=== PATIENT | female | born 1995 | race Caucasian/White ===

== ENCOUNTER 2016-06-01 17:54 | Emergency (ER) | payer OTHER ==
[~2016-06-01] VITALS: Ht 165.1 cm; Wt 76.2 kg
[2016-06-01 20:37] LABS: BILIRUBIN,URINE NEGATIVE (NEG); GLUCOSE,URINE NEGATIVE (NEG); NITRITE,URINE NEGATIVE (NEG); PROTEIN,URINE NEGATIVE (NEG-TRACE); UROBILINOGEN,URINE 0.2 mg/dL (0.2 mg/dL)
[2016-06-01 20:44] LABS: BACTERIA,URINE FEW /HPF (0-FEW); RBC,URINE 0 /HPF (0-2); SQUAMOUS EPITHELIAL CELL,UR MOD /LPF
[2016-06-01 20:46] LABS: NEG OBC UR NEG; POS OBC UR POS
--- NOTE | 2016-06-01 21:58 | PHYS DOC ---
Past Medical History Past Medical History: Anxiety, Depression, GERD, IBS Past Surgical History: Tonsillectomy Alcohol Use: Occasionally Drug Use: None Adult General Chief Complaint Chief Complaint: FLANK PAIN HPI HPI Patient is a 21 year old female brought to the ED by a family member with the complaint of right flank pain today. The patient is concerned that the pain is in her "kidney area". She denies UTI symptoms at this time. Denies fever or chills. Denies nausea or vomiting. She had pain like this a couple of weeks ago and was seen at [facility] emergency department where she was diagnosed with a UTI and given a prescription for antibiotics. She was given Bactrim and had an allergic reaction and then her primary care doctor switched her to a different antibiotic and she did finish it. Patient denies , she has been on the diaper shot for about 5 years. She hasn't had a period for 5 years. She has not had chronic problems with UTIs. Denies fever or chills. She did say that she has had a workup of her gallbladder before, sounds like a gallbladder ultrasound and even a PIPIDA scan , states that the tests were normal. I ask her if it was this type of pain that caused them to do that workup in the past and she said no, it was a "bulge" in the area of her gallbladder. Patient has no chronic medical problems. Her insurance recently changed so her previous primary care physician can't see her anymore. Review of Systems Review of Systems Constitutional: Denies fever or chills [] Eyes: Denies change in visual acuity, redness, or eye pain [] HENT: Denies nasal congestion or sore throat [] Respiratory: Denies cough or shortness of breath [] Cardiovascular: Denies chest pain GI: As in history of present illness : Denies dysuria or hematuria [] Musculoskeletal: Denies back pain or joint pain [] Integument: Denies rash or skin lesions [] Neurologic: Denies headache, focal weakness or sensory changes [] Allergies Allergies Allergies Coded Allergies Type Severity Reaction Last Updated Verified sulfamethoxazole Adverse Reaction Unknown Nausea and Vomiting 06/01/16 Yes trimethoprim Adverse Reaction Unknown Nausea and Vomiting 06/01/16 Yes Physical Exam Physical Exam Constitutional: Well developed, well nourished, no acute distress, non-toxic appearance. Alert, mentating normally, moving about on the cart without difficulty. HENT: Normocephalic, atraumatic, bilateral external ears normal, nose normal. [ ] Eyes: conjunctiva normal, no discharge. [] Neck: Normal range of motion, no stridor. [] Cardiovascular:Heart rate regular rhythm, no murmur [] Lungs & Thorax: Bilateral breath sounds clear to auscultation [] Abdomen: Bowel sounds normal, soft, no tenderness, no masses, no pulsatile masses. Abdomen exam entirely benign. Skin: Warm, dry, no erythema, no rash. [] Back: No tenderness, no CVA tenderness. The area of the patient's pain is in the mid axillary line just below the lower rib cage, it is not the flank or the right upper quadrant. Extremities: No tenderness, no cyanosis, no clubbing, ROM intact, no edema. [] Neurologic: Alert and oriented X 3, normal motor function, normal sensory function, no focal deficits noted. [] Current Patient Data Vital Signs Vital Signs Date Time Temp Pulse Resp B/P Pulse Ox O2 Delivery O2 Flow Rate FiO2 06/01/16 22:05 83 124/67 99 Room Air 06/01/16 19:05 98.3 16 98.3 Lab Values Laboratory Tests Test 06/01/16 18:00 Urine Collection Type Unknown Urine Color Yellow Urine Clarity Clear Urine pH 6.0 Urine Specific [place] <=1.005 Urine Protein Negativemg/dL (NEG-TRACE) Urine Glucose (UA) Negativemg/dL (NEG) Urine Ketones (Stick) Negativemg/dL (NEG) Urine Blood Negative (NEG) Urine Nitrite Negative (NEG) Urine Bilirubin Negative (NEG) Urine Urobilinogen Dipstick 0.2mg/dL (0.2 mg/dL) Urine Leukocyte Esterase Small (NEG) Urine RBC 0/HPF (0-2) Urine WBC 5-10/HPF (0-4) Urine Squamous Epithelial Cells Mod/LPF Urine Bacteria Few/HPF (0-FEW) Urine Test Negative (NEG) EKG EKG [] Radiology/Procedures Radiology/Procedures [] Course & Med Decision Making Course & Med Decision Making Pertinent Labs and Imaging studies reviewed. (See chart for details) 21-year-old female presents with right sided pain that is not specifically flank pain or right upper quadrant pain. She has had her gallbladder fully evaluated in the past and says those tests were normal. It's unclear what might be the cause of her pain but her abdominal exam is benign. I did check a urinalysis because she reports a recent UTI, that urinalysis was negative. I reassured the patient that at this time there is no evidence in the ED of any serious cause of her pain and ask her to follow up with a primary care doctor if her pain persists for further evaluation if necessary. [] Dragon Disclaimer Dragon Disclaimer This electronic medical record was generated, in whole or in part, using a voice recognition dictation system. Departure Departure Impression: Primary Impression: Flank pain Disposition: HOME, SELF-CARE Condition: STABLE Referrals: NO PCP (PCP) Additional Instructions: As we discussed, today you do not have a urinary tract infection. It's not clear what is causing your pain but we are not finding any serious cause. I recommend that you try ibuprofen, 2-3 [id number] every 6 hours as needed for pain, and follow-up with your doctor for possible further testing. GEORGE IBARRA MD Jun 01, 2016 21:57
[2016-06-01 22:05] VITALS: BP 124/67
== END 2016-06-01 22:14 | disposition home or self-care (01) ==
LOC: ER 17:54
DX: R10.11 Right upper quadrant pain (principal); K21.9 Gastro-esophageal reflux disease without esophagitis; K58.9 Irritable bowel syndrome, unspecified
CPT/HCPCS: 81001; 81025; 87086; 99284

== ENCOUNTER 2017-01-05 19:18 | Emergency (ER) | payer OTHER ==
[~2017-01-05] VITALS: Ht 165.1 cm; Wt 81.6 kg
[2017-01-05 20:47] LABS: BILIRUBIN,URINE NEGATIVE (NEG); GLUCOSE,URINE NEGATIVE (NEG); NITRITE,URINE POSITIVE (NEG); PROTEIN,URINE NEGATIVE (NEG-TRACE); UROBILINOGEN,URINE 0.2 mg/dL (0.2 mg/dL)
[2017-01-05 20:53] LABS: BACTERIA,URINE FEW /HPF (0-FEW); RBC,URINE 0 /HPF (0-2); WBC,URINE >40 /HPF (0-4)
[2017-01-05 20:54] LABS: SQUAMOUS EPITHELIAL CELL,UR FEW /LPF
[2017-01-05] MEDS ORDERED: MORPHINE SULFATE 2 MG/ML DISP.SYRIN. IV ONE (21:00)
[2017-01-05] MEDS ORDERED: ONDANSETRON PF 4 MG/2 ML VIAL. IV ONE (21:00)
[2017-01-05 21:10] LABS: HEMATOCRIT 44.3 % (36.0-47.0); HEMOGLOBIN 14.9 g/dL (12.0-15.5); RED BLOOD COUNT 5.1 x10^6/uL (3.50-5.40); RED CELL DISTRIBUTION WIDTH 13.8 % (11.5-14.5); WHITE BLOOD COUNT 8.4 x10^3/uL (4.0-11.0)
[2017-01-05 21:19] LABS: CALCIUM 9.3 mg/dL (8.5-10.1); CREATININE 0.7 mg/dL (0.6-1.0); GFR 103.7; POTASSIUM 3.8 mmol/L (3.5-5.1)
[2017-01-05 21:25] LABS: ALBUMIN 3.9 g/dL (3.4-5.0); ALBUMIN/GLOBULIN RATIO 1.1 (1.0-1.7); TOTAL BILIRUBIN 0.2 mg/dL (0.2-1.0); TOTAL PROTEIN 7.6 g/dL (6.4-8.2)
--- NOTE | 2017-01-05 21:59 | PHYS DOC ---
Past Medical History Past Medical History: Anxiety, Depression, GERD, IBS Past Surgical History: Tonsillectomy Alcohol Use: Occasionally Drug Use: None Adult General Chief Complaint Chief Complaint: PAIN ON URINATION HPI HPI Patient is a 22 year old female with a history of recurrent UTI presents the ED complaining of dysuria 2 days. Patient states she is taking Cipro outpatient with no improvement. Describes the pain as sharp. Rates the pain as 6 out of 10. Associated symptoms urinary frequency. Denies nausea/vomiting, fever, back pain, chest pain, shortness of breath, STD exposure, vaginal discharge or vaginal bleeding. Review of Systems Review of Systems Constitutional: Denies fever or chills [] Eyes: Denies change in visual acuity, redness, or eye pain [] HENT: Denies nasal congestion or sore throat [] Respiratory: Denies cough or shortness of breath [] Cardiovascular: No additional information not addressed in HPI [] GI: Denies abdominal pain, nausea, vomiting, bloody stools or diarrhea [] : Complains of dysuria. Denies hematuria [] Musculoskeletal: Denies back pain or joint pain [] Integument: Denies rash or skin lesions [] Neurologic: Denies headache, focal weakness or sensory changes [] Endocrine: Denies polyuria or polydipsia [] Current Medications Current Medications Current Medications Medications (Trade) Dose Ordered Sig/Lottie Start Time Stop Time Status Last Admin Dose Admin Ceftriaxone Sodium 50 ml @ 100 mls/hr 1X ONCE 01/05/17 22:00 01/05/17 22:29 DC 01/05/17 21:50 100 MLS/HR Morphine Sulfate 2 mg 1X ONCE 01/05/17 21:00 01/05/17 21:02 DC 01/05/17 21:18 2 MG Ondansetron HCl (Zofran) 4 mg 1X ONCE 01/05/17 21:00 01/05/17 21:02 DC 01/05/17 21:17 4 MG Sodium Chloride 1,000 ml @ 1,000 mls/hr 1X ONCE 01/05/17 22:00 01/05/17 22:59 DC 01/05/17 21:50 1,000 MLS/HR Allergies Allergies Allergies Coded Allergies Type Severity Reaction Last Updated Verified sulfamethoxazole Adverse Reaction Unknown Nausea and Vomiting 06/01/16 Yes trimethoprim Adverse Reaction Unknown Nausea and Vomiting 06/01/16 Yes Physical Exam Physical Exam Constitutional: Well developed, well nourished, no acute distress, non-toxic appearance. [] HENT: Normocephalic, atraumatic, bilateral external ears normal, oropharynx moist, no oral exudates, nose normal. [] Eyes: PERRLA, EOMI, conjunctiva normal, no discharge. [] Neck: Normal range of motion, no tenderness, supple, no stridor. [] Cardiovascular:Heart rate regular rhythm, no murmur [] Lungs & Thorax: Bilateral breath sounds clear to auscultation [] Abdomen: Bowel sounds normal, soft, MILD SUPRAPUBIC TENDERNESS, no masses, no pulsatile masses. [] Skin: Warm, dry, no erythema, no rash. [] Back: No tenderness, no CVA tenderness. [] Extremities: No tenderness, no cyanosis, no clubbing, ROM intact, no edema. [] Neurologic: Alert and oriented X 3, normal motor function, normal sensory function, no focal deficits noted. [] Psychologic: Affect normal, judgement normal, mood normal. [] Current Patient Data Vital Signs Vital Signs Date Time Temp Pulse Resp B/P (MAP) Pulse Ox O2 Delivery O2 Flow Rate FiO2 01/05/17 22:31 74 121/60 (80) 97 Room Air 01/05/17 21:18 16 01/05/17 20:19 98.2 98.2 Lab Values Laboratory Tests Test 01/05/17 20:08 01/05/17 20:12 01/05/17 21:00 Urine Collection Type Unknown Urine Color [place] Urine Clarity Clear Urine pH 6.0 Urine Specific [place] <=1.005 Urine Protein Negative mg/dL (NEG-TRACE) Urine Glucose (UA) Negative mg/dL (NEG) Urine Ketones (Stick) Negative mg/dL (NEG) Urine Blood Small (NEG) Urine Nitrite Positive (NEG) Urine Bilirubin Negative (NEG) Urine Urobilinogen Dipstick 0.2 mg/dL (0.2 mg/dL) Urine Leukocyte Esterase Large (NEG) Urine RBC 0 /HPF (0-2) Urine WBC >40 /HPF (0-4) Urine Squamous Epithelial Cells Few /LPF Urine Bacteria Few /HPF (0-FEW) Urine Mucus Slight /LPF POC Urine HCG, Qualitative Hcg negative (Negative) White Blood Count 8.4 x10^3/uL (4.0-11.0) Red Blood Count 5.10 x10^6/uL (3.50-5.40) Hemoglobin 14.9 g/dL (12.0-15.5) Hematocrit 44.3 % (36.0-47.0) Mean Corpuscular Volume 87 fL (79-100) Mean Corpuscular Hemoglobin 29 pg (25-35) Mean Corpuscular Hemoglobin Concent 34 g/dL (31-37) Red Cell Distribution Width 13.8 % (11.5-14.5) Platelet Count 234 x10^3/uL (140-400) Sodium Level 142 mmol/L (136-145) Potassium Level 3.8 mmol/L (3.5-5.1) Chloride Level 105 mmol/L (98-107) Carbon Dioxide Level 27 mmol/L (21-32) Anion Gap 10 (6-14) Blood Urea Nitrogen 10 mg/dL (7-20) Creatinine 0.7 mg/dL (0.6-1.0) Estimated GFR (Cockcroft-Gault) 103.7 BUN/Creatinine Ratio 14 (6-20) Glucose Level 96 mg/dL (70-99) Calcium Level 9.3 mg/dL (8.5-10.1) Total Bilirubin 0.2 mg/dL (0.2-1.0) Aspartate Amino Transferase (AST) 23 U/L (15-37) Alanine Aminotransferase (ALT) 38 U/L (14-59) Alkaline Phosphatase 89 U/L (46-116) Total Protein 7.6 g/dL (6.4-8.2) Albumin 3.9 g/dL (3.4-5.0) Albumin/Globulin Ratio 1.1 (1.0-1.7) Laboratory Tests 01/05/17 21:00 Laboratory Tests 01/05/17 21:00 EKG EKG [] Radiology/Procedures Radiology/Procedures PROCEDURE: PELVIS W/TV Pelvic ultrasound to include transabdominal and transvaginal imaging 01/05/2017 CLINICAL HISTORY: Mid pelvic pain intermittently for the last 6 months. TECHNIQUE: Using the distended urinary bladder as a sonographic window, a real-time ultrasound examination of the pelvis was performed. Additionally in an attempt to better evaluate the uterus and adnexa, a transvaginal ultrasound study was performed. Multiple images were obtained. FINDINGS: The uterus is within normal limits in size and echogenicity. It measures 6.0 x 3.6 x 2.1 cm in longitudinal, transverse, and AP dimensions. The endometrial echo complex measures 2 mm in thickness which is within normal limits. No focal abnormality of the uterus is seen. Both ovaries are within normal limits in size and echogenicity. The right ovary measures 2.9 x 2.1 x 2.1 cm in size. Left ovary measures 3.1 x 2.1 x 1.9 cm in size. No adnexal mass is seen. No free fluid is noted. IMPRESSION: Negative study. Electronically signed by: Jose J Candelaria MD (01/05/2017 10:08 PM) [facility][] Course & Med Decision Making Course & Med Decision Making Pertinent Labs and Imaging studies reviewed. (See chart for details) []Discussed labs and imaging with patient. Patient's pain improved. Vital stable , no acute distress. Patient refused exam. Patient treated with Rocephin and ED. Will prescribe macrobid outpatient since patient has been taking cipro for 5 days with no improvement. Patient's pain resolved. On examination, abdomen is soft nontender nondistended. No peritoneal signs. Discussed follow-up with urology this week. Provided contact information for urologist in [facility]. Discussed reasons to return to the ED. Patient understands and agrees with plan. Family at bedside. Dragon Disclaimer Dragon Disclaimer This electronic medical record was generated, in whole or in part, using a voice recognition dictation system. Departure Departure Impression: Primary Impression: Urinary tract infection Disposition: 01 HOME, SELF-CARE Condition: IMPROVED Referrals: NO PCP (PCP) ANGELA HUGHES MD Patient Instructions: Urinary Tract Infection Additional Instructions: UROLOGY [address] Scripts Nitrofurantoin Monohyd/M-Cryst (MACROBID 100 MG CAPSULE) 100 Mg Capsule 1 CAP PO BID, #14 CAP Prov: KARYN BOTELLO 01/05/17 KARYN BOTELLO Jan 05, 2017 21:59
[2017-01-05] MEDS ORDERED: IV NORMAL SALINE 1000ML BAG 1,000 ML IV ONE (22:00)
--- NOTE | 2017-01-05 22:11 | RAD ---
Pelvic ultrasound to include transabdominal and transvaginal imaging 01/05/2017 CLINICAL HISTORY: Mid pelvic pain intermittently for the last 6 months. TECHNIQUE: Using the distended urinary bladder as a sonographic window, a real-time ultrasound examination of the pelvis was performed. Additionally in an attempt to better evaluate the uterus and adnexa, a transvaginal ultrasound study was performed. Multiple images were obtained. FINDINGS: The uterus is within normal limits in size and echogenicity. It measures 6.0 x 3.6 x 2.1 cm in longitudinal, transverse, and AP dimensions. The endometrial echo complex measures 2 mm in thickness which is within normal limits. No focal abnormality of the uterus is seen. Both ovaries are within normal limits in size and echogenicity. The right ovary measures 2.9 x 2.1 x 2.1 cm in size. Left ovary measures 3.1 x 2.1 x 1.9 cm in size. No adnexal mass is seen. No free fluid is noted. IMPRESSION: Negative study. Electronically signed by: Jose J Candelaria MD (01/05/2017 10:08 PM) [facility]
[2017-01-05 22:31] VITALS: BP 121/60
[2017-01-05] MEDS ORDERED: NITR100C62 PO (22:32)
== END 2017-01-05 22:50 | disposition home or self-care (01) ==
LOC: ER 19:18
DX: N39.0 Urinary tract infection, site not specified (principal); F41.9 Anxiety disorder, unspecified; F32.9 Major depressive disorder, single episode, unspecified; K58.9 Irritable bowel syndrome, unspecified; K21.9 Gastro-esophageal reflux disease without esophagitis; Z87.440 Personal history of urinary (tract) infections; Z88.2 Allergy status to sulfonamides; Z88.1 Allergy status to other antibiotic agents
CPT/HCPCS: 36415; 76830; 76856; 80053; 81001; 81025; 85027; 96365; 96375; 99285; J0690; J2270; J2405; J7030

== ENCOUNTER → 2017-04-27 | Outpatient (CLI) | payer OTHER ==
[~2017-04-27] MED LIST: CONTRAST GIVEN MC
[2017-04-27] MEDS: IOHEXOL 300 MG/ML 100ML VIAL. IV ×2 (15:30)
== END | disposition home or self-care (01) ==
LOC: CT 15:22
DX: N30.21 Other chronic cystitis with hematuria (principal)
CPT/HCPCS: 74178; Q9967

== ENCOUNTER 2017-09-16 09:02 | Emergency (ER) | payer OTHER ==
[2017-09-16 09:36] LABS: ADD MAN DIFF? NO
[2017-09-16 09:39] LABS: BASO # 0.1 x10^3/uL (0.0-0.2); BASO % 1 % (0-3); EOS # 0.1 x10^3/uL (0.0-0.7); EOS % 1 % (0-3); HEMATOCRIT 39.1 % (36.0-47.0); HEMOGLOBIN 13.6 g/dL (12.0-15.5); LYMPH # 2.9 x10^3/uL (1.0-4.8); LYMPH % 31 % (24-48); MEAN CORPUSCULAR HEMOGLOBIN 30 pg (25-35); MEAN CORPUSCULAR HGB CONC 35 g/dL (31-37); MEAN CORPUSCULAR VOLUME 87 fL (79-100); MONO # 0.7 x10^3/uL (0.0-1.1); MONO % 7 % (0-9); NEUT # 5.5 x10^3uL (1.8-7.7); NEUT % 60 % (31-73); PLATELET COUNT 235 x10^3/uL (140-400); RED BLOOD COUNT 4.49 x10^6/uL (3.50-5.40); RED CELL DISTRIBUTION WIDTH 12.7 % (11.5-14.5); WHITE BLOOD COUNT 9.3 x10^3/uL (4.0-11.0)
[2017-09-16 09:40] LABS: URINE HCG POC HCG NEGATIVE (Negative)
[2017-09-16 09:42] LABS: BILIRUBIN,URINE NEGATIVE (NEG); CLARITY,URINE CLEAR; COLOR,URINE YELLOW; GLUCOSE,URINE NEGATIVE (NEG); NITRITE,URINE NEGATIVE (NEG); PH,URINE 6.5; PROTEIN,URINE NEGATIVE (NEG-TRACE); UROBILINOGEN,URINE 0.2 mg/dL (0.2 mg/dL)
[2017-09-16 09:46] LABS: AMPHETAMINE/METHAMPHETAMINE NEG (NEG); BARBITURATES NEG (NEG); BENZODIAZEPINES NEG (NEG); CANNABINOIDS NEG (NEG); COCAINE NEG (NEG); ETHANOL, URINE NEG (NEG); METHADONE NEG (NEG); OPIATES NEG (NEG); PHENCYCLIDINE NEG (NEG)
[2017-09-16 09:49] LABS: ETHANOL < 10 mg/dL (0-10)
[2017-09-16 09:49] LABS: ANION GAP 8 (6-14); BLOOD UREA NITROGEN 9 mg/dL (7-20); BUN/CREATININE RATIO 10 (6-20); CALCIUM 8.3 mg/dL (8.5-10.1); CARBON DIOXIDE 24 mmol/L (21-32); CHLORIDE 107 mmol/L (98-107); CREATININE 0.9 mg/dL (0.6-1.0); GFR 77.6; GLUCOSE 103 mg/dL (70-99); POTASSIUM 3.8 mmol/L (3.5-5.1); SODIUM 139 mmol/L (136-145)
[2017-09-16 09:53] LABS: SQUAMOUS EPITHELIAL CELL,UR FEW /LPF
[2017-09-16 09:54] LABS: BACTERIA,URINE FEW /HPF (0-FEW); RBC,URINE OCC /HPF (0-2); WBC,URINE OCC /HPF (0-4)
[2017-09-16 09:56] LABS: ALBUMIN 3.2 g/dL (3.4-5.0); ALBUMIN/GLOBULIN RATIO 0.8 (1.0-1.7); ALK PHOS 80 U/L (46-116); ALT (SGPT) 34 U/L (14-59); AST (SGOT) 21 U/L (15-37); LIPASE 104 U/L (73-393); TOTAL BILIRUBIN 0.2 mg/dL (0.2-1.0)
[2017-09-16] MEDS: PANTOPRAZOLE IV PUSH 40 MG VIAL. IVP (10:07)
[2017-09-16] MEDS: KETOROLAC 30 MG/ML INJ. IV (10:08)
[2017-09-16] MEDS: ONDANSETRON PF 4 MG/2 ML VIAL. IV (10:08)
[2017-09-16] MEDS: fentaNYL PF VIAL 100 MCG/2 ML VIAL IV (10:08)
[2017-09-16] MEDS: IV NORMAL SALINE 1000ML BAG 1,000 ML IV (10:13)
== END 2017-09-16 12:00 | disposition home or self-care (01) ==
LOC: ER 12:00
DX: R10.11 Right upper quadrant pain (principal); R11.2 Nausea with vomiting, unspecified; R19.7 Diarrhea, unspecified; K21.9 Gastro-esophageal reflux disease without esophagitis; K58.9 Irritable bowel syndrome, unspecified; Z88.1 Allergy status to other antibiotic agents; Z88.2 Allergy status to sulfonamides
CPT/HCPCS: 36415; 76700; 80053; 80307; 81001; 81025; 83690; 85025; 96361; 96374; 96375; 99285-25; C9113; G0480; J1885; J2405; J3010; J7030

== ENCOUNTER → 2018-06-05 | Outpatient (CLI) | payer OTHER ==
[2017-09-16 10:35] VITALS: BP 118/79
[~2018-06-05] MED LIST changes: -CONTRAST GIVEN MC; +DICY20TA3 PO; +NITR100C62 PO; +ONDA4TAB10 SL
== END | disposition home or self-care (01) ==
LOC: SPEC 17:20
PROVIDERS: ATTEND Nurse Practitioner
DX: Z01.419 Encounter for gynecological examination (general) (routine) without abnormal findings (principal)
CPT/HCPCS: 88175

== ENCOUNTER 2018-10-10 21:04 | Emergency (ER) | payer OTHER ==
[~2018-10-10] VITALS: Ht 167.6 cm; Wt 89.8 kg
[2018-10-10 21:45] LABS: BILIRUBIN,URINE NEGATIVE (NEG); CLARITY,URINE CLEAR; COLOR,URINE YELLOW; NITRITE,URINE NEGATIVE (NEG); PH,URINE 5.5; PROTEIN,URINE NEGATIVE (NEG-TRACE); UROBILINOGEN,URINE 0.2 mg/dL (0.2 mg/dL)
[2018-10-10 21:51] VITALS: BP 127/69
[2018-10-10 21:54] LABS: BACTERIA,URINE 0 /HPF (0-FEW); RBC,URINE OCC /HPF (0-2); SQUAMOUS EPITHELIAL CELL,UR FEW /LPF
[2018-10-10 21:58] LABS: BASO % 0 % (0-3); EOS # 0.1 x10^3/uL (0.0-0.7); EOS % 1 % (0-3); HEMATOCRIT 41.9 % (36.0-47.0); LYMPH # 4.1 x10^3/uL (1.0-4.8); LYMPH % 37 % (24-48); MEAN CORPUSCULAR HEMOGLOBIN 30 pg (25-35); MEAN CORPUSCULAR HGB CONC 33 g/dL (31-37); MEAN CORPUSCULAR VOLUME 90 fL (79-100); MONO # 0.7 x10^3/uL (0.0-1.1); MONO % 7 % (0-9); NEUT # 6.2 x10^3/uL (1.8-7.7); NEUT % 56 % (31-73); PLATELET COUNT 242 x10^3/uL (140-400); RED BLOOD COUNT 4.68 x10^6/uL (3.50-5.40); WHITE BLOOD COUNT 11.2 x10^3/uL (4.0-11.0)
[2018-10-10 22:09] LABS: CALCIUM 9.3 mg/dL (8.5-10.1); CREATININE 0.8 mg/dL (0.6-1.0); GFR 88.1; POTASSIUM 3.9 mmol/L (3.5-5.1)
[2018-10-10 22:14] LABS: ALBUMIN/GLOBULIN RATIO 1.1 (1.0-1.7); TOTAL BILIRUBIN 0.3 mg/dL (0.2-1.0); TOTAL PROTEIN 7.5 g/dL (6.4-8.2)
[2018-10-10] MEDS ORDERED: IV NORMAL SALINE 1000ML BAG 1,000 ML IV ONE (22:15)
[2018-10-10] MEDS ORDERED: ONDANSETRON PF 4 MG/2 ML VIAL. IV ONE (22:15)
--- NOTE | 2018-10-10 22:18 | PHYS DOC ---
Past Medical History Past Medical History: Anxiety, Depression, GERD, IBS Past Surgical History: Tonsillectomy Alcohol Use: Occasionally Drug Use: None Adult General Chief Complaint Chief Complaint: DIZZY/LIGHT HEADED [facility] HPI Patient is a 23 year old female who presents with headache earlier today, nausea with multiple vomiting episodes since headache began. Headache is since resolved. Patient does reports dizziness and fatigue and generalized weakness. Denies nausea currently. No fever chills, sweats. Last menstrual period was 6 weeks ago. Patient did have a negative home 2 days ago. No recent antibiotics, known GI illness exposure or abdominal surgeries. [] Review of Systems Review of Systems ROS as per hPI All other systems were reviewed and found to be within normal limits, except as documented in this note. Current Medications Current Medications Current Medications Medications (Trade) Dose Ordered Sig/Lottie Start Time Stop Time Status Last Admin Dose Admin Ondansetron HCl (Zofran) 4 mg 1X ONCE 10/10/18 22:15 10/10/18 22:16 DC 10/10/18 22:10 4 MG Sodium Chloride 1,000 ml @ 1,000 mls/hr 1X ONCE 10/10/18 22:15 10/10/18 23:14 10/10/18 22:10 1,000 MLS/HR Allergies Allergies Allergies Coded Allergies Type Severity Reaction Last Updated Verified No Known Medication Allergies Allergy Intermediate 09/16/17 Yes sulfamethoxazole Adverse Reaction Mild Nausea and Vomiting 10/10/18 Yes trimethoprim Adverse Reaction Mild Nausea and Vomiting 10/10/18 Yes Physical Exam Physical Exam Constitutional: Well developed, well nourished, no acute distress, non-toxic appearance. [] HENT: Normocephalic, atraumatic, bilateral external ears normal, oropharynx moist, nose normal. [] Eyes: PERRLA, EOMI, conjunctiva normal, no discharge. [] Neck: Normal range of motion, no tenderness. [] Cardiovascular:Heart rate regular rhythm. [] Lungs & Thorax: Bilateral breath sounds clear to auscultation [] Abdomen: Bowel sounds normal, soft, no tenderness. [] Skin: Warm, dry, no erythema. [] Back: No tenderness, no CVA tenderness. [] Extremities: No tenderness, no edema. [] Neurologic: Alert and oriented X 3, normal motor function, normal sensory funct ion, no focal deficits noted. [] Psychologic: Affect normal, judgement normal, mood normal. [] Current Patient Data Vital Signs Vital Signs Date Time Temp Pulse Resp B/P (MAP) Pulse Ox O2 Delivery O2 Flow Rate FiO2 10/10/18 21:51 82 18 99 10/10/18 21:15 97.9 159/103 (121) Room Air 97.9 Lab Values Laboratory Tests Test 10/10/18 21:09 10/10/18 21:16 10/10/18 21:30 Urine Collection Type Unknown Urine Color Yellow Urine Clarity Clear Urine pH 5.5 Urine Specific [place] 1.025 Urine Protein Negative mg/dL (NEG-TRACE) Urine Glucose (UA) Negative mg/dL (NEG) Urine Ketones (Stick) Negative mg/dL (NEG) Urine Blood Negative (NEG) Urine Nitrite Negative (NEG) Urine Bilirubin Negative (NEG) Urine Urobilinogen Dipstick 0.2 mg/dL (0.2 mg/dL) Urine Leukocyte Esterase Negative (NEG) Urine RBC Occ /HPF (0-2) Urine WBC 1-4 /HPF (0-4) Urine Squamous Epithelial Cells Few /LPF Urine Bacteria 0 /HPF (0-FEW) Urine Mucus Mod /LPF POC Urine HCG, Qualitative Hcg negative (Negative) White Blood Count 11.2 x10^3/uL (4.0-11.0) H Red Blood Count 4.68 x10^6/uL (3.50-5.40) Hemoglobin 14.0 g/dL (12.0-15.5) Hematocrit 41.9 % (36.0-47.0) Mean Corpuscular Volume 90 fL (79-100) Mean Corpuscular Hemoglobin 30 pg (25-35) Mean Corpuscular Hemoglobin Concent 33 g/dL (31-37) Red Cell Distribution Width 13.0 % (11.5-14.5) Platelet Count 242 x10^3/uL (140-400) Neutrophils (%) (Auto) 56 % (31-73) Lymphocytes (%) (Auto) 37 % (24-48) Monocytes (%) (Auto) 7 % (0-9) Eosinophils (%) (Auto) 1 % (0-3) Basophils (%) (Auto) 0 % (0-3) Neutrophils # (Auto) 6.2 x10^3/uL (1.8-7.7) Lymphocytes # (Auto) 4.1 x10^3/uL (1.0-4.8) Monocytes # (Auto) 0.7 x10^3/uL (0.0-1.1) Eosinophils # (Auto) 0.1 x10^3/uL (0.0-0.7) Basophils # (Auto) 0.0 x10^3/uL (0.0-0.2) Sodium Level 143 mmol/L (136-145) Potassium Level 3.9 mmol/L (3.5-5.1) Chloride Level 104 mmol/L (98-107) Carbon Dioxide Level 26 mmol/L (21-32) Anion Gap 13 (6-14) Blood Urea Nitrogen 7 mg/dL (7-20) Creatinine 0.8 mg/dL (0.6-1.0) Estimated GFR (Cockcroft-Gault) 88.1 BUN/Creatinine Ratio 9 (6-20) Glucose Level 81 mg/dL (70-99) Calcium Level 9.3 mg/dL (8.5-10.1) Total Bilirubin 0.3 mg/dL (0.2-1.0) Aspartate Amino Transferase (AST) 23 U/L (15-37) Alanine Aminotransferase (ALT) 35 U/L (14-59) Alkaline Phosphatase 86 U/L (46-116) Total Protein 7.5 g/dL (6.4-8.2) Albumin 4.0 g/dL (3.4-5.0) Albumin/Globulin Ratio 1.1 (1.0-1.7) Laboratory Tests 10/10/18 21:30 Laboratory Tests 10/10/18 21:30 EKG EKG [] Radiology/Procedures Radiology/Procedures [] Course & Med Decision Making Course & Med Decision Making Pertinent Labs and Imaging studies reviewed. (See chart for details) [Symptoms fully resolved with treatment in the emergency department. Vital signs stable. Recommend supportive care, PCP for. Return precautions reviewed. Elise iefunmilayo verbalizes understanding agreement discharge instructions prior to departure.] Dragon Disclaimer Dragon Disclaimer This electronic medical record was generated, in whole or in part, using a voice recognition dictation system. Departure Departure Impression: Primary Impression: Dizziness Additional Impression: Nausea and vomiting Disposition: HOME, SELF-CARE Condition: GOOD Referrals: NO PCP (PCP) Patient Instructions: Nausea and Vomiting, [id number] Additional Instructions: Please take nausea medication as directed. Clear liquids for the next 6-12 hours then gradually increase to a bland diet as tolerated. Follow-up with your PCP in the next 2 to days if symptoms persist. Return to the ED if new or worsening symptoms Scripts Ondansetron Hcl (ZOFRAN) 4 Mg Tablet 1 TAB PO Q6HRS, #10 TAB 0 Refills Prov: KATHE BOUCHER DO 10/10/18 Problem Qualifiers KATHE BOUCHER DO Oct 10, 2018 22:18
[2018-10-10] MEDS ORDERED: ONDA4TAB7 PO (22:59)
--- NOTE | 2018-10-11 07:45 | EKG ---
[facility] [address] [place] [address] Test Date: 2018-10-10 Test Time: 21:24:25 Pat Name: CHAITANYA BELL Department: Room: Gender: F User Experience Researcher: : 1995 Requested By: KATHE BOUCHER Order Number: [id number] Reading MD: Measurements Intervals [place] Rate: 74 P: 52 RI: 162 QRS: 36 QRSD: 90 T: 9 QT: 382 QTc: 429 Interpretive Statements SINUS RHYTHM ATRIAL PREMATURE COMPLEX(ES) NO SPECIFIC ECG ABNORMALITIES RI6.01 Unconfirmed report No previous ECG available for comparison
== END 2018-10-10 23:15 | disposition home or self-care (01) ==
LOC: ER 21:04
DX: R42 Dizziness and giddiness (principal); R11.2 Nausea with vomiting, unspecified; R51 Headache; F32.9 Major depressive disorder, single episode, unspecified; F41.9 Anxiety disorder, unspecified; K21.9 Gastro-esophageal reflux disease without esophagitis; K58.9 Irritable bowel syndrome, unspecified; Z88.1 Allergy status to other antibiotic agents; Z88.2 Allergy status to sulfonamides
CPT/HCPCS: 36415; 80053; 81001; 81025; 85025; 93005; 96361; 96374; 99285; J2405; J7030

== ENCOUNTER 2019-03-06 14:27 | Emergency (ER) | payer OTHER ==
[~2019-03-06] VITALS: Ht 165.1 cm; Wt 84.4 kg
[~2019-03-06 14:27] MED LIST changes: +ONDA4TAB7 PO
[2019-03-06] MEDS ORDERED: IV NORMAL SALINE 1000ML BAG 1,000 ML IV SCH (14:54)
[2019-03-06] MEDS ORDERED: ONDANSETRON PF 4 MG/2 ML VIAL. IV ONE ×2 (15:00→17:15)
--- NOTE | 2019-03-06 15:00 | PHYS DOC ---
Past Medical History Past Medical History: Anxiety, Depression, GERD, IBS Past Surgical History: Tonsillectomy Alcohol Use: Occasionally Drug Use: None Adult General Chief Complaint Chief Complaint: VOMITING IN HPI HPI Patient is a 24-year-old female, approximately 7-9 weeks who presents with complaint of nausea and vomiting 2 days. Patient states that she has had difficulty keeping food or fluids down. She does complain of some generalized weakness and states that she has a little bit of achiness in her stomach but otherwise denies any pain anywhere else. She denies any vaginal bleeding or discharge. She states that nothing is improving her symptoms.[] Review of Systems Review of Systems Constitutional: Denies fever or chills [] Respiratory: Denies cough or shortness of breath [] Cardiovascular: No additional information not addressed in HPI [] GI: Complains of mild stomachache with nausea and vomiting. Denies diarrhea [] : Denies dysuria or hematuria [] Neurologic: Denies headache, focal weakness or sensory changes [] All other systems were reviewed and found to be within normal limits, except as documented in this note. Current Medications Current Medications Current Medications Medications (Trade) Dose Ordered Sig/Lottie Start Time Stop Time Status Last Admin Dose Admin Diphenhydramine HCl (Benadryl) 25 mg 1X ONCE 03/06/19 17:45 03/06/19 17:46 UNV Metoclopramide HCl (Reglan Vial) 5 mg 1X ONCE 03/06/19 17:45 03/06/19 17:46 UNV Ondansetron HCl (Zofran) 4 mg 1X ONCE 03/06/19 17:15 03/06/19 17:16 DC 03/06/19 17:15 4 MG Sodium Chloride 1,000 ml @ 1,000 mls/hr Q1H 03/06/19 14:54 03/06/19 15:53 DC 03/06/19 15:18 1,000 MLS/HR Allergies Allergies Allergies Coded Allergies Type Severity Reaction Last Updated Verified No Known Medication Allergies Allergy Intermediate 09/16/17 Yes sulfamethoxazole Adverse Reaction Mild Nausea and Vomiting 10/10/18 Yes trimethoprim Adverse Reaction Mild Nausea and Vomiting 10/10/18 Yes Physical Exam Physical Exam Constitutional: Well developed, well nourished, no acute distress, non-toxic appearance. [] HENT: Normocephalic, atraumatic, bilateral external ears normal, oropharynx moist, no oral exudates, nose normal. [] Eyes: PERRLA, EOMI, conjunctiva normal, no discharge. [] Neck: Normal range of motion, no tenderness, supple, no stridor. [] Cardiovascular: Regular rate and rhythm[] Lungs & Thorax: Bilateral breath sounds clear to auscultation [] Abdomen: Bowel sounds normal, soft, no tenderness. [] Skin: Warm, dry, no erythema, no rash. [] Extremities: No tenderness, no cyanosis, no clubbing, ROM intact. [] Neurologic: Alert and oriented X 3, no focal deficits noted. [] Current Patient Data Vital Signs Vital Signs Date Time Temp Pulse Resp B/P (MAP) Pulse Ox O2 Delivery O2 Flow Rate FiO2 03/06/19 14:45 98.1 88 16 127/60 (82) 99 Room Air 98.1 Lab Values Laboratory Tests Test 03/06/19 14:43 03/06/19 14:52 03/06/19 15:15 Urine Collection Type Unknown Urine Color Yellow Urine Clarity Clear Urine pH 6.0 Urine Specific [place] <=1.005 Urine Protein Negative mg/dL (NEG-TRACE) Urine Glucose (UA) Negative mg/dL (NEG) Urine Ketones (Stick) Negative mg/dL (NEG) Urine Blood Trace (NEG) Urine Nitrite Negative (NEG) Urine Bilirubin Negative (NEG) Urine Urobilinogen Dipstick 0.2 mg/dL (0.2 mg/dL) Urine Leukocyte Esterase Negative (NEG) Urine RBC Occ /HPF (0-2) Urine WBC 0 /HPF (0-4) Urine Squamous Epithelial Cells Mod /LPF Urine Bacteria Few /HPF (0-FEW) POC Urine HCG, Qualitative Hcg positive (Negative) White Blood Count 11.6 x10^3/uL (4.0-11.0) H Red Blood Count 4.54 x10^6/uL (3.50-5.40) Hemoglobin 13.6 g/dL (12.0-15.5) Hematocrit 40.1 % (36.0-47.0) Mean Corpuscular Volume 88 fL (79-100) Mean Corpuscular Hemoglobin 30 pg (25-35) Mean Corpuscular Hemoglobin Concent 34 g/dL (31-37) Red Cell Distribution Width 13.4 % (11.5-14.5) Platelet Count 229 x10^3/uL (140-400) Neutrophils (%) (Auto) 70 % (31-73) Lymphocytes (%) (Auto) 21 % (24-48) L Monocytes (%) (Auto) 8 % (0-9) Eosinophils (%) (Auto) 1 % (0-3) Basophils (%) (Auto) 1 % (0-3) Neutrophils # (Auto) 8.1 x10^3/uL (1.8-7.7) H Lymphocytes # (Auto) 2.4 x10^3/uL (1.0-4.8) Monocytes # (Auto) 0.9 x10^3/uL (0.0-1.1) Eosinophils # (Auto) 0.1 x10^3/uL (0.0-0.7) Basophils # (Auto) 0.1 x10^3/uL (0.0-0.2) Maternal Serum HCG Beta Subunit 68840 mIU/mL (0-5) H Sodium Level 139 mmol/L (136-145) Potassium Level 3.6 mmol/L (3.5-5.1) Chloride Level 104 mmol/L (98-107) Carbon Dioxide Level 25 mmol/L (21-32) Anion Gap 10 (6-14) Blood Urea Nitrogen 4 mg/dL (7-20) L Creatinine 0.6 mg/dL (0.6-1.0) Estimated GFR (Cockcroft-Gault) 121.8 BUN/Creatinine Ratio 7 (6-20) Glucose Level 81 mg/dL (70-99) Calcium Level 8.9 mg/dL (8.5-10.1) Total Bilirubin 0.3 mg/dL (0.2-1.0) Aspartate Amino Transferase (AST) 17 U/L (15-37) Alanine Aminotransferase (ALT) 29 U/L (14-59) Alkaline Phosphatase 74 U/L (46-116) Total Protein 6.9 g/dL (6.4-8.2) Albumin 3.4 g/dL (3.4-5.0) Albumin/Globulin Ratio 1.0 (1.0-1.7) Lipase 72 U/L (73-393) L Laboratory Tests 03/06/19 15:15 Laboratory Tests 03/06/19 15:15 EKG EKG [] Radiology/Procedures Radiology/Procedures [] Course & Med Decision Making Course & Med Decision Making Pertinent Labs and Imaging studies reviewed. (See chart for details) [] Dragon Disclaimer Dragon Disclaimer This electronic medical record was generated, in whole or in part, using a voice recognition dictation system. Departure Departure Impression: Primary Impression: Nausea and vomiting during Disposition: HOME, SELF-CARE Condition: STABLE Referrals: NO PCP (PCP) Patient Instructions: Nausea and Vomiting, - First Trimester Scripts Metoclopramide Hcl (REGLAN) 10 Mg Tablet 1 TAB PO QID PRN for NAUSEA for 5 Days, #20 TAB 0 Refills before food and bedtime Prov: NURA DUMONT Jr. DO 03/06/19 Ondansetron (ONDANSETRON ODT) 4 Mg Tab.rapdis 1 TAB PO PRN Q6-8HRS PRN for NAUSEA, #15 TAB Prov: NURA DUMONT Jr. DO 03/06/19 NURA DUMONT Jr. DO Mar 06, 2019 15:00
[2019-03-06 15:04] LABS: BILIRUBIN,URINE NEGATIVE (NEG); CLARITY,URINE CLEAR; COLOR,URINE YELLOW; NITRITE,URINE NEGATIVE (NEG); PROTEIN,URINE NEGATIVE (NEG-TRACE); UROBILINOGEN,URINE 0.2 mg/dL (0.2 mg/dL)
[2019-03-06 15:26] LABS: BASO # 0.1 x10^3/uL (0.0-0.2); BASO % 1 % (0-3); EOS # 0.1 x10^3/uL (0.0-0.7); EOS % 1 % (0-3); HEMATOCRIT 40.1 % (36.0-47.0); HEMOGLOBIN 13.6 g/dL (12.0-15.5); LYMPH # 2.4 x10^3/uL (1.0-4.8); LYMPH % 21 % (24-48); MEAN CORPUSCULAR HEMOGLOBIN 30 pg (25-35); MEAN CORPUSCULAR HGB CONC 34 g/dL (31-37); MEAN CORPUSCULAR VOLUME 88 fL (79-100); MONO # 0.9 x10^3/uL (0.0-1.1); MONO % 8 % (0-9); NEUT # 8.1 x10^3/uL (1.8-7.7); NEUT % 70 % (31-73); PLATELET COUNT 229 x10^3/uL (140-400); RED BLOOD COUNT 4.54 x10^6/uL (3.50-5.40); RED CELL DISTRIBUTION WIDTH 13.4 % (11.5-14.5); WHITE BLOOD COUNT 11.6 x10^3/uL (4.0-11.0)
[2019-03-06 15:27] LABS: BACTERIA,URINE FEW /HPF (0-FEW); RBC,URINE OCC /HPF (0-2); SQUAMOUS EPITHELIAL CELL,UR MOD /LPF; WBC,URINE 0 /HPF (0-4)
[2019-03-06 15:59] LABS: CALCIUM 8.9 mg/dL (8.5-10.1); CREATININE 0.6 mg/dL (0.6-1.0); GFR 121.8; POTASSIUM 3.6 mmol/L (3.5-5.1)
[2019-03-06 16:06] LABS: ALBUMIN 3.4 g/dL (3.4-5.0); TOTAL BILIRUBIN 0.3 mg/dL (0.2-1.0); TOTAL PROTEIN 6.9 g/dL (6.4-8.2)
[2019-03-06] MEDS ORDERED: ONDA4TAB12 PO (17:01)
[2019-03-06] MEDS ORDERED: METO10TA81 PO (17:34)
[2019-03-06] MEDS ORDERED: diphenhydrAMINE 50 MG/ML VIAL IVP ONE (17:45)
[2019-03-06] MEDS ORDERED: METOCLOPRAMIDE HCL 10 MG/2 ML VIAL. IVP ONE (17:45)
[2019-03-06 18:10] VITALS: BP 120/67
== END 2019-03-06 18:15 | disposition home or self-care (01) ==
LOC: ER 14:27
DX: O21.9 Vomiting of pregnancy, unspecified (principal); O99.611 Diseases of the digestive system complicating pregnancy, first trimester; R53.1 Weakness; K58.9 Irritable bowel syndrome, unspecified; K21.9 Gastro-esophageal reflux disease without esophagitis; Z90.89 Acquired absence of other organs; Z88.2 Allergy status to sulfonamides; Z88.1 Allergy status to other antibiotic agents; Z3A.09 9 weeks gestation of pregnancy
CPT/HCPCS: 36415; 80053; 81001; 81025; 83690; 84702; 85025; 96361; 96374; 96375; 96376; 99285; J1200; J2405; J2765; J7030

== ENCOUNTER → 2019-03-15 | Outpatient (CLI) | payer OTHER ==
[2019-03-06 18:10] VITALS: BP 120/67
[~2019-03-15] MED LIST changes: +METO10TA81 PO; +ONDA4TAB12 PO
[2019-03-15 11:32] LABS: BASO # 0.1 x10^3/uL (0.0-0.2); BASO % 1 % (0-3); EOS # 0.1 x10^3/uL (0.0-0.7); EOS % 1 % (0-3); HEMATOCRIT 40.3 % (36.0-47.0); HEMOGLOBIN 13.6 g/dL (12.0-15.5); LYMPH # 2.4 x10^3/uL (1.0-4.8); LYMPH % 27 % (24-48); MEAN CORPUSCULAR HEMOGLOBIN 30 pg (25-35); MEAN CORPUSCULAR HGB CONC 34 g/dL (31-37); MEAN CORPUSCULAR VOLUME 89 fL (79-100); MONO # 0.6 x10^3/uL (0.0-1.1); MONO % 7 % (0-9); NEUT # 5.8 x10^3/uL (1.8-7.7); NEUT % 65 % (31-73); PLATELET COUNT 219 x10^3/uL (140-400); RED BLOOD COUNT 4.55 x10^6/uL (3.50-5.40); RED CELL DISTRIBUTION WIDTH 13.6 % (11.5-14.5)
== END | disposition home or self-care (01) ==
LOC: LAB 11:02
PROVIDERS: ATTEND Obstetrics & Gynecology
DX: Z32.01 Encounter for pregnancy test, result positive (principal)
CPT/HCPCS: 36415; 85025; 86592; 86762; 86850; 86900; 86901; 87340

== ENCOUNTER → 2019-06-04 | Outpatient (CLI) | payer OTHER ==
--- NOTE | 2019-06-04 17:10 | RAD ---
EXAM: Obstetrics sonogram. HISTORY: weight and anatomy assessment. TECHNIQUE: Sonographic imaging of a gravid uterus was performed. COMPARISON: None. FINDINGS: There is a single intrauterine fetus in breech presentation with a normal heart rate of 141 bpm. There is an anterior placenta without evidence of placenta previa. The amniotic fluid axes normal at 13.9 cm. The cervix is closed and measures 4.7 cm in length. There is a three-vessel umbilical cord. The umbilical cords insertion is not well seen. The stomach, kidneys, spine and brain are unremarkable. The bladder is likely empty. The lateral ventricles and right and left ventricular outflow tracts are also not well seen due to presentation and early gestational age. The biparietal diameter is 3.97 cm, corresponding with 18 weeks and 0 days. The head circumference is 15.75 cm, corresponding with 18 weeks and 4 days. The abdominal circumference is 13.55 cm, corresponding with 19 weeks and 0 days. The femoral length is 2.80 cm, corresponding with 18 weeks and 4 days. The estimated gestational age patient combined also measurements is 18 weeks and 4 days and the estimated weight is 256 g. The estimated due date is 11/01/2019. IMPRESSION: 1. Single intrauterine fetus in breech presentation with normal heart rate and gestational age based on ultrasound measurements of 18 weeks and 4 days. 2. Suboptimal evaluation of the lateral ventricles, outflow tracts, bladder and cord insertion due to early gestational age and presentation. Short-term follow-up can be performed to complete an otherwise unremarkable anatomy survey. Electronically signed by: Mervat Villa MD (06/04/2019 5:07 PM) [id number]
== END | disposition home or self-care (01) ==
LOC: US 15:07
PROVIDERS: ATTEND Obstetrics & Gynecology
DX: O32.1XX0 Maternal care for breech presentation, not applicable or unspecified (principal); Z3A.18 18 weeks gestation of pregnancy
CPT/HCPCS: 76805

== ENCOUNTER → 2019-07-15 | Outpatient (CLI) | payer OTHER ==
[2019-07-15 10:33] LABS: BASO % 1 % (0-3); EOS # 0.1 x10^3/uL (0.0-0.7); EOS % 1 % (0-3); HEMATOCRIT 39.4 % (36.0-47.0); HEMOGLOBIN 13.2 g/dL (12.0-15.5); LYMPH # 1.7 x10^3/uL (1.0-4.8); LYMPH % 17 % (24-48); MEAN CORPUSCULAR HEMOGLOBIN 31 pg (25-35); MEAN CORPUSCULAR HGB CONC 34 g/dL (31-37); MEAN CORPUSCULAR VOLUME 91 fL (79-100); MONO # 0.4 x10^3/uL (0.0-1.1); MONO % 4 % (0-9); NEUT # 7.8 x10^3/uL (1.8-7.7); NEUT % 78 % (31-73); PLATELET COUNT 242 x10^3/uL (140-400); RED BLOOD COUNT 4.31 x10^6/uL (3.50-5.40); RED CELL DISTRIBUTION WIDTH 13.8 % (11.5-14.5); WHITE BLOOD COUNT 10.1 x10^3/uL (4.0-11.0)
== END | disposition home or self-care (01) ==
LOC: LAB 09:12
PROVIDERS: ATTEND Obstetrics & Gynecology
DX: O09.92 Supervision of high risk pregnancy, unspecified, second trimester (principal); Z3A.24 24 weeks gestation of pregnancy
CPT/HCPCS: 36415; 82950; 85025

== ENCOUNTER 2019-09-16 19:29 | Observation (INO) | payer OTHER ==
[~2019-09-16] VITALS: Ht 165.1 cm; Wt 91.6 kg
[2019-09-16] MEDS ORDERED: MAG HYDROX/ALUMINUM HYD/SIMETH 30 ML ORAL.SUSP PO PRN (20:00)
[2019-09-16] MEDS ORDERED: IV RINGERS,LACTATED 500ML 500 ML IV PRN (20:00)
[2019-09-16] MEDS ORDERED: IV RINGERS,LACTATED 1000ML 1,000 ML IV PRN (20:00)
[2019-09-16] MEDS ORDERED: ACETAMINOPHEN 325 MG TABLET. PO PRN (20:00)
[2019-09-16] MEDS ORDERED: 0.9 % SODIUM CHLORIDE 10 ML DISP.SYRIN. IV PRN (20:00)
[2019-09-16] MEDS ORDERED: ONDANSETRON PF 4 MG/2 ML VIAL. IVP PRN (20:00)
[2019-09-16] MEDS: METOCLOPRAMIDE HCL 10 MG/2 ML VIAL. IVP PRN (20:55)
[2019-09-16 21:33] LABS: CALCIUM 7.9 mg/dL (8.5-10.1); CREATININE 0.6 mg/dL (0.6-1.0); GFR 121.8; POTASSIUM 3.2 mmol/L (3.5-5.1)
[2019-09-16 21:39] LABS: ALBUMIN 2.1 g/dL (3.4-5.0); ALBUMIN/GLOBULIN RATIO 0.6 (1.0-1.7); TOTAL BILIRUBIN 0.1 mg/dL (0.2-1.0); TOTAL PROTEIN 5.5 g/dL (6.4-8.2)
[2019-09-16] MEDS: IV RINGERS,LACTATED 1000ML 1,000 ML IV PRN (22:15)
[2019-09-16 22:29] LABS: BILIRUBIN,URINE NEGATIVE (NEG); CLARITY,URINE CLEAR; COLOR,URINE YELLOW; NITRITE,URINE NEGATIVE (NEG); PROTEIN,URINE NEGATIVE (NEG-TRACE); UROBILINOGEN,URINE 0.2 mg/dL (0.2 mg/dL)
[2019-09-16 22:33] LABS: BARBITURATES NEG (NEG); BENZODIAZEPINES NEG (NEG); CANNABINOIDS NEG (NEG); COCAINE NEG (NEG); METHADONE NEG (NEG); OPIATES NEG (NEG); PHENCYCLIDINE NEG (NEG)
[2019-09-16 22:35] LABS: AMPHETAMINE/METHAMPHETAMINE NEG (NEG); BACTERIA,URINE MODERATE /HPF (0-FEW); RBC,URINE OCC /HPF (0-2); SQUAMOUS EPITHELIAL CELL,UR MOD /LPF
[2019-09-17] MEDS ORDERED: CALCIUM CARBONATE 500 MG TAB.CHEW PO PRN
[2019-09-17] MEDS: METOCLOPRAMIDE HCL 10 MG/2 ML VIAL. IVP PRN ×2 (02:18→07:56)
[2019-09-17] MEDS: IV RINGERS,LACTATED 1000ML 1,000 ML IV PRN (04:21)
[2019-09-17 06:15] LABS: CALCIUM 8.2 mg/dL (8.5-10.1); CREATININE 0.5 mg/dL (0.6-1.0); GFR 150.3; POTASSIUM 3.4 mmol/L (3.5-5.1)
== END 2019-09-17 09:55 | disposition home or self-care (01) ==
LOC: 3 SO LND 19:29
PROVIDERS: ADMIT Obstetrics & Gynecology; ATTEND Obstetrics & Gynecology
DX: O21.9 Vomiting of pregnancy, unspecified (principal); Z88.1 Allergy status to other antibiotic agents; Z3A.34 34 weeks gestation of pregnancy
CPT/HCPCS: 36415; 80048; 80053; 80307; 81001; 82150; 83690; 87086; 96374; 96376; G0378; G0379; J2765; J7120

== ENCOUNTER 2019-10-07 15:34 | Observation (INO) | payer OTHER ==
[2019-10-07] MEDS ORDERED: IV RINGERS,LACTATED 1000ML 1,000 ML IV SCH (16:00)
[2019-10-07 16:23] LABS: BASO % 0 % (0-3); EOS # 0.1 x10^3/uL (0.0-0.7); EOS % 1 % (0-3); HEMATOCRIT 39.4 % (36.0-47.0); HEMOGLOBIN 13.5 g/dL (12.0-15.5); LYMPH # 2.3 x10^3/uL (1.0-4.8); LYMPH % 25 % (24-48); MEAN CORPUSCULAR HEMOGLOBIN 30 pg (25-35); MEAN CORPUSCULAR HGB CONC 34 g/dL (31-37); MEAN CORPUSCULAR VOLUME 89 fL (79-100); MONO # 0.7 x10^3/uL (0.0-1.1); MONO % 7 % (0-9); NEUT # 6.1 x10^3/uL (1.8-7.7); NEUT % 66 % (31-73); PLATELET COUNT 232 x10^3/uL (140-400); RED BLOOD COUNT 4.44 x10^6/uL (3.50-5.40); RED CELL DISTRIBUTION WIDTH 13.6 % (11.5-14.5); WHITE BLOOD COUNT 9.2 x10^3/uL (4.0-11.0)
[2019-10-07 16:38] LABS: CALCIUM 8.3 mg/dL (8.5-10.1); CREATININE 0.6 mg/dL (0.6-1.0); GFR 121.8; POTASSIUM 3.6 mmol/L (3.5-5.1)
[2019-10-07 16:44] LABS: ALBUMIN 2.5 g/dL (3.4-5.0); ALBUMIN/GLOBULIN RATIO 0.6 (1.0-1.7); TOTAL BILIRUBIN 0.2 mg/dL (0.2-1.0); TOTAL PROTEIN 6.6 g/dL (6.4-8.2)
[2019-10-07 16:45] LABS: BILIRUBIN,URINE NEGATIVE (NEG); CLARITY,URINE CLOUDY; COLOR,URINE AMBER; NITRITE,URINE NEGATIVE (NEG); PH,URINE 6.5 (<5.0-8.0); PROTEIN,URINE NEGATIVE (NEG-TRACE); UROBILINOGEN,URINE 0.2 mg/dL (0.2 mg/dL)
[2019-10-07 17:10] LABS: BACTERIA,URINE MODERATE /HPF (0-FEW); RBC,URINE 0 /HPF (0-2); SQUAMOUS EPITHELIAL CELL,UR MANY /LPF
[2019-10-07 17:43] LABS: CREATININE,RANDOM URINE 248.9 mg/dL (Not Establ.)
== END 2019-10-07 17:30 | disposition home or self-care (01) ==
LOC: 3 SO LND 15:34
PROVIDERS: ADMIT Obstetrics & Gynecology; ATTEND Obstetrics & Gynecology
DX: O13.3 Gestational [pregnancy-induced] hypertension without significant proteinuria, third trimester (principal); Z88.1 Allergy status to other antibiotic agents; Z3A.37 37 weeks gestation of pregnancy
CPT/HCPCS: 36415; 80053; 81001; 82570; 84156; 85025; 87086; G0378; G0379

== ENCOUNTER 2019-10-14 15:28 | Inpatient (IN) | payer OTHER ==
[~2019-10-14] VITALS: Ht 165.1 cm; Wt 92.5 kg
[2019-10-14] MEDS ORDERED: IV RINGERS,LACTATED 1000ML 1,000 ML IV PRN (15:45)
[2019-10-14 16:14] LABS: BASO % 0 % (0-3); EOS # 0.1 x10^3/uL (0.0-0.7); EOS % 1 % (0-3); HEMATOCRIT 38.4 % (36.0-47.0); HEMOGLOBIN 13.6 g/dL (12.0-15.5); LYMPH % 20 % (24-48); MEAN CORPUSCULAR HEMOGLOBIN 31 pg (25-35); MEAN CORPUSCULAR HGB CONC 35 g/dL (31-37); MEAN CORPUSCULAR VOLUME 88 fL (79-100); MONO # 0.6 x10^3/uL (0.0-1.1); MONO % 6 % (0-9); NEUT # 7.3 x10^3/uL (1.8-7.7); NEUT % 73 % (31-73); PLATELET COUNT 203 x10^3/uL (140-400); RED BLOOD COUNT 4.35 x10^6/uL (3.50-5.40)
[2019-10-14 16:15] LABS: BILIRUBIN,URINE SMALL (NEG); CLARITY,URINE CLEAR; COLOR,URINE YELLOW; NITRITE,URINE NEGATIVE (NEG); PH,URINE 6.5 (<5.0-8.0); PROTEIN,URINE NEGATIVE (NEG-TRACE); UROBILINOGEN,URINE 0.2 mg/dL (0.2 mg/dL)
[2019-10-14 16:19] LABS: CREATININE,RANDOM URINE 211.2 mg/dL (Not Establ.)
[2019-10-14 16:25] LABS: BACTERIA,URINE MODERATE /HPF (0-FEW); HYALINE CASTS, URINE FEW /HPF; SQUAMOUS EPITHELIAL CELL,UR MANY /LPF
[2019-10-14 16:49] LABS: ALBUMIN 2.5 g/dL (3.4-5.0); ALBUMIN/GLOBULIN RATIO 0.7 (1.0-1.7); CALCIUM 8.6 mg/dL (8.5-10.1); CREATININE 0.7 mg/dL (0.6-1.0); POTASSIUM 3.9 mmol/L (3.5-5.1); TOTAL BILIRUBIN 0.3 mg/dL (0.2-1.0)
[2019-10-14] MEDS ORDERED: ZOLPIDEM 5 MG TABLET. PO PRN (17:15)
[2019-10-14] MEDS ORDERED: TERBUTALINE 1 MG/ML VIAL. SQ PRN (17:15)
[2019-10-14] MEDS ORDERED: fentaNYL PF VIAL 100 MCG/2 ML VIAL IVP PRN ×2 (17:15)
[2019-10-14] MEDS ORDERED: 0.9 % SODIUM CHLORIDE 10 ML DISP.SYRIN. IV PRN (17:15)
[2019-10-14] MEDS ORDERED: LIDOCAINE 1% PF 30 ML VIAL. INJ PRN (17:15)
[2019-10-14] MEDS ORDERED: CITRIC ACID/SODIUM CITRATE 30 ML SOLUTION. PO PRN (17:15)
[2019-10-14] MEDS ORDERED: OXYTOCIN 30 UNIT/500 ML PREMIX 500 ML IV PRN ×2 (17:15)
[2019-10-14] MEDS ORDERED: IBUPROFEN 400 MG TABLET. PO PRN (17:15)
[2019-10-14] MEDS ORDERED: DINOPROSTONE 10 MG SUPP.VAG VG ONE (18:00)
[2019-10-14 18:12] VITALS: BP 142/84
[2019-10-14] MEDS: IV RINGERS,LACTATED 1000ML 1,000 ML IV SCH ×2 (18:35→22:24)
--- NOTE | 2019-10-14 20:48 | PDOC1 ---
OB - History Hx of Present Care: Good Care Ultrasounds: Normal mid trimester US Obstetrical Complications: Gestational Hypertension Medical Complications: None Past Family/Social History * Past Medical, Surgical, Family and Obstetric Histories reviewed from chart. Rubella: Immune RPR/VDRL: Negative GBS Status: Negative HBsAG: Negative OB - Chief Complaint & HPI Date of Admission: Date of Admission: Oct 14, 2019 at 15:28 Chief Complaint/History : 1 Para: 0 EGA: 38 Reason for admission: induction of labor (gestational hypertension) Admission Nurse Assessment Rev: Yes OB - Admission Exam Physical Exam Vitals: VS - Last 72 Hours, by Label Date Time Temp Pulse Resp B/P (MAP) Pulse Ox O2 Delivery O2 Flow Rate FiO2 10/13/20 18:12 98.2 105 20 142/84 (103) 98.2 HEENT: Normal Heart: Regular Rate Lungs: Clear Abdomen: Gravid, Non tender, Soft Extremities: Edema Reflexes: Normal Cervical Dilatation: 2cm Effacement: 75% Station: -3 Membranes: Intact Accelerations: Accelerations Present Decelerations: No decelerations Contractions on Admission: None Text A: 38 wks IUP Gestational Hypertension P: Admit IOL gestational hypertension with cervidil, then pitocin in am. CHAS NICE Jr, MD Oct 14, 2019 20:48
[2019-10-14] MEDS ORDERED: diphenhydrAMINE HCL 25 MG CAPSULE PO PRN (22:15)
[2019-10-15] MEDS ORDERED: L&D EPIDURAL SYRINGE 50 ML ONE ×5 (09:34→22:20)
[2019-10-15] MEDS ORDERED: ROPIVacaine 0.2% PF 10 ML VIAL. ONE ×3 (09:34→13:36)
[2019-10-15] MEDS ORDERED: IV RINGERS,LACTATED 1000ML 1,000 ML IV SCH (10:08)
[2019-10-15] MEDS: IV RINGERS,LACTATED 1000ML 1,000 ML IV SCH ×2 (10:10→21:10)
[2019-10-15] MEDS ORDERED: NALOXONE 0.4 MG/ML VIAL. IV PRN (10:15)
[2019-10-15] MEDS ORDERED: L&D EPIDURAL 50 ML SYRINGE. ONE (12:00)
[2019-10-15] MEDS: ONDANSETRON PF 4 MG/2 ML VIAL. IVP PRN ×3 (12:44→20:48)
[2019-10-15] MEDS ORDERED: METOCLOPRAMIDE HCL 10 MG/2 ML VIAL. IVP PRN (14:30)
[2019-10-15] MEDS ORDERED: LIDOCAINE 2% PF 5 ML VIAL. ONE ×4 (17:54→23:21)
--- NOTE | 2019-10-16 00:50 | PDOC ---
VAGINAL DELIVERY DATE DATE: 10/16/19 TIME: 00:48 : 1 Para: 1 EGA: 38 VAGINAL DELIVERY: VTX VACCUM ASSISTED: No PLACENTA: Spontaneous 8/9 SEX: Female WEIGHT Weight [ 3275 gm] Nuchal Cord: No Amniotic Fluid: Clear PAIN: Epidural EPISIOTOMY: No EXTENSION: Yes (bilateral vaginal sidewall lacerations) REPAIRED WITH 2-0 vicryl EBL 300 ml COMPLICATIONS none CONDITION pt. stable Signs of Intrauterine Infectio: None Shoulder Dystocia: No CHAS NICE Jr, MD Oct 16, 2019 00:50
[2019-10-16] MEDS ORDERED: oxyCODONE/APAP 5/325 1 TAB TABLET PO PRN (01:00)
[2019-10-16] MEDS ORDERED: 0.9 % SODIUM CHLORIDE 10 ML DISP.SYRIN. IV PRN (01:00)
[2019-10-16] MEDS ORDERED: BENZOCAINE 20% TOPICAL AEROSOL SPRAY 57GM CAN. TP PRN (01:00)
[2019-10-16] MEDS ORDERED: TDaP (Adacel) per PROTOCOL. MC PRN (01:00)
[2019-10-16] MEDS ORDERED: MAGNESIUM HYDROXIDE 2,400 MG/30 ML ORAL.SUSP. PO PRN (01:00)
[2019-10-16] MEDS ORDERED: HYDROCORTISONE 1% TOPICAL OINTMENT 30GM TUBE. TP PRN (01:00)
[2019-10-16] MEDS ORDERED: SIMETHICONE 80 MG TAB.CHEW PO PRN (01:00)
[2019-10-16] MEDS ORDERED: DOCUSATE SODIUM 100 MG CAPSULE. PO PRN (01:00)
[2019-10-16] MEDS ORDERED: MMR per PROTOCOL. MC PRN (01:00)
[2019-10-16] MEDS ORDERED: diphenhydrAMINE HCL 25 MG CAPSULE PO PRN (01:00)
[2019-10-16] MEDS ORDERED: PHENYLEPH/MINERAL OIL/PETROLAT RECTAL OINTMENT TUBE. RC PRN (01:00)
[2019-10-16] MEDS ORDERED: ACETAMINOPHEN 325 MG TABLET. PO PRN (01:00)
[2019-10-16] MEDS ORDERED: ZOLPIDEM 5 MG TABLET. PO PRN (01:00)
[2019-10-16] MEDS ORDERED: MAG HYDROX/ALUMINUM HYD/SIMETH 30 ML ORAL.SUSP PO PRN (01:00)
[2019-10-16] MEDS ORDERED: OXYTOCIN 30 UNIT/500 ML PREMIX 500 ML IV PRN (01:00)
[2019-10-16] MEDS: IBUPROFEN 400 MG TABLET. PO PRN ×3 (02:44→16:30)
[2019-10-16 03:27] VITALS: BP 128/75
[2019-10-16 04:35] VITALS: BP 122/88
[2019-10-16 09:00] VITALS: BP 128/89
[2019-10-16] MEDS: MULTIVITAMIN with MINERAL TABLET. PO SCH (09:34)
[2019-10-16 16:42] VITALS: BP 135/90
[2019-10-16 21:00] VITALS: BP 115/77
[2019-10-17] MEDS: IBUPROFEN 400 MG TABLET. PO PRN ×2 (00:25→10:59)
[2019-10-17 00:29] VITALS: BP 124/80
[2019-10-17 04:33] LABS: BASO # 0.1 x10^3/uL (0.0-0.2); BASO % 0 % (0-3); EOS # 0.1 x10^3/uL (0.0-0.7); EOS % 1 % (0-3); HEMATOCRIT 32.5 % (36.0-47.0); HEMOGLOBIN 10.8 g/dL (12.0-15.5); LYMPH # 3.3 x10^3/uL (1.0-4.8); LYMPH % 27 % (24-48); MEAN CORPUSCULAR HEMOGLOBIN 30 pg (25-35); MEAN CORPUSCULAR HGB CONC 33 g/dL (31-37); MEAN CORPUSCULAR VOLUME 90 fL (79-100); MONO % 8 % (0-9); NEUT # 7.8 x10^3/uL (1.8-7.7); NEUT % 64 % (31-73); PLATELET COUNT 164 x10^3/uL (140-400); WHITE BLOOD COUNT 12.2 x10^3/uL (4.0-11.0)
[2019-10-17 05:20] VITALS: BP 133/93
[2019-10-17] MEDS ORDERED: FERROUS SULFATE 325 MG TABLET. PO SCH (08:00)
--- NOTE | 2019-10-17 08:36 | PDOC3 ---
OB DISCHARGE SUMMARY DATE OF ADMISSION: 10/15/19 DATE OF DISCHARGE: 10/17/19 REASON FOR ADMISSION: Induction of labor (gestational HTN) INTRAPARTUM PROCEDURES: Spontanous Vag Deliv DISCHARGE DIAGNOSIS: Term Delivered DISCHARGE INFORMATION: Activity (ad manpreet), Diet (regular), Instructions (pelvic rest x 6 wks) HOSPITAL COURSE Term gestation delivered vaginally without complications. CHAS NICE Jr, MD Oct 17, 2019 08:36
[2019-10-17] MEDS ORDERED: IBUP-1027 PO (08:38)
--- NOTE | 2019-10-17 08:39 | DISCH ---
DISCHARGE INSTRUCTIONS Condition on Discharge Condition on Discharge: Stable Activity After Discharge Activity Instructions for Disc: Activity as tolerated Lifting Instructions after Dis: No heavy lifting Driving Instructions after Dis: Do not drive today Diet after Discharge Diet after Discharge: Regular Contacting the DRJordyn after DC Call your doctor for: Concerns you may have Follow-Up Follow up with: Dr. Rey in 6 wks CHAS REY Jr, MD Oct 17, 2019 08:39
[2019-10-17] MEDS: MULTIVITAMIN with MINERAL TABLET. PO SCH (08:52)
[2019-10-17] MEDS ORDERED: DIPH,PERTUSS(ACELL),TET VAC/PF 0.5 ML SYRINGE. VAX IM ONE (09:00)
[2019-10-17 11:00] VITALS: BP 131/89
[2019-10-17 13:35] VITALS: BP 115/79
--- NOTE | 2019-10-17 13:50 | NUR ---
Discharge instructions given to pt. Pt verbalized understanding. Pt discharged home.
== END 2019-10-17 14:00 | disposition home or self-care (01) | DRG 807 ==
LOC: OBSVTOIN 15:28 → 3 SO LND 15:28 → 3 NORTH 10-16 03:10
PROVIDERS: ADMIT Obstetrics & Gynecology; ATTEND Obstetrics & Gynecology
PROC: 10E0XZZ Delivery of Products of Conception, External Approach (ICD-10-PCS; principal; 2019-10-16)
PROC: 0UQGXZZ Repair Vagina, External Approach (ICD-10-PCS; 2019-10-16)
PROC: 3E0R3BZ Introduction of Anesthetic Agent into Spinal Canal, Percutaneous Approach (ICD-10-PCS; 2019-10-16)
PROC: 00HU33Z Insertion of Infusion Device into Spinal Canal, Percutaneous Approach (ICD-10-PCS; 2019-10-16)
PROC: 3E0234Z Introduction of Serum, Toxoid and Vaccine into Muscle, Percutaneous Approach (ICD-10-PCS; 2019-10-16)
DX: O13.4 Gestational [pregnancy-induced] hypertension without significant proteinuria, complicating childbirth (principal); Z37.0 Single live birth; Z3A.38 38 weeks gestation of pregnancy; O71.4 Obstetric high vaginal laceration alone; Z20.828 Contact with and (suspected) exposure to other viral communicable diseases; Z23 Encounter for immunization
CPT/HCPCS: 36415; 80053; 81001; 82570; 84156; 85025; 86592; 86850; 86900; 86901; 87086; 87426; 90471; 90715; G0378; J2405; J2590; J2765; J2795; J3010; J7120; Q0163; U0003-CS